=== PATIENT | female | born 1940 | race Caucasian/White ===

== ENCOUNTER 2019-01-07 15:30 | Emergency (ER) | payer OTHER, BC ==
[2019-01-07] MEDS: HYDROCODONE/APAP (5/325) TAB PO (19:44)
[2019-01-07] MEDS: KETOROLAC 30 MG INJ IM (19:45)
== END 2019-01-07 20:33 | disposition home or self-care (01) ==
LOC: FTE 15:30
DX: M54.5 Low back pain (principal)
CPT/HCPCS: 96372; 99284-25

== ENCOUNTER 2019-01-22 17:12 | Emergency (ER) | payer BC ==
[2019-01-22] MEDS: DEXAMETHASONE 10 MG/ML 1 ML INJ IM (19:51)
[2019-01-22] MEDS: DIAZEPAM 5 MG TAB PO (19:51)
[2019-01-22] MEDS: KETOROLAC 30 MG INJ IM (19:51)
[2019-01-22] MEDS: traMADol 50 MG TAB PO (19:51)
[2019-01-22] MEDS ORDERED: traMADol 50 MG TAB PO (20:00)
[2019-01-22] MEDS: morphine 2 MG INJ IM (23:12)
== END 2019-01-22 23:16 | disposition home or self-care (01) ==
LOC: FTE 17:12
DX: M54.41 Lumbago with sciatica, right side (principal); I10 Essential (primary) hypertension; E03.9 Hypothyroidism, unspecified
CPT/HCPCS: 96372; 99284-25; J1100

== ENCOUNTER 2019-01-31 12:47 | Emergency (ER) | payer BC ==
[2019-01-31] MEDS: HYDROCODONE/APAP (10/325) TAB PO (14:53)
== END 2019-01-31 15:16 | disposition home or self-care (01) ==
LOC: FTE 12:47
DX: M25.561 Pain in right knee (principal); Z76.0 Encounter for issue of repeat prescription
CPT/HCPCS: 99283